=== PATIENT | female | born 1995 | race Caucasian/White ===

== ENCOUNTER 2018-05-24 18:14 | Inpatient (IN) | payer BC, OTHER ==
[2018-05-24] MEDS ORDERED: Dinoprostone* 10 MG VAG.SUPP VAGINAL ONE (18:52)
[2018-05-24] MEDS ORDERED: Lactated Ringers 1000 ML Bag* 1,000 ML IV ONE (19:16)
[2018-05-24] MEDS ORDERED: Buffered Lidocaine 1% SYRIN* 1 ML/SYRINGE INTRADERM ONE (19:16)
--- NOTE | 2018-05-24 19:48 | HP ---
General Information - Reason for Visit Term here for induction of labor for elevated BP. - General Information Maternal Age: 23 Grav: 2 Para: 1 SAB: 0 IEA: 0 Estimated Due Date: 05/29/18 Determined By: Early Ultrasound Maternal Blood Type and Rh: A Positive - Results this Serology/RPR Result: Non-Reactive Rubella Result: Immune HBsAg Result: Negative HIV Result: Negative GBS Culture Result: Negative Past Medical History Delivery History: Hx Uncomplicated Vaginal Delivery Pertinent Past Medical History: Non-Contributory Pertinent Past Surgical History: None Past Surgical History Comment: [place] tooth extraction Pertinent Family History: Non-Contributory Family History Comment: HTN hypercholesteremia aneurysm melanoma - Antepartal Records Antepartal Records: Reviewed, Complicated by: - Increased BP Review of Systems Constitutional: Comfortable CV Complaint: No Respiratory: Shortness of Breath: No Gastrointestinal: No Nausea/Vomiting, Normal Bowel Movement Genitourinary: No Dysuria, No Bleeding, No Leaking Fluid Musculoskeletal: No Complaint Neurological: No Headache, No Visual Changes Movement: Normal - Comments No RUQ pain Exam Allergies/Adverse Reactions: Allergies No Known Allergies Allergy (Verified 05/24/18 18:35) BP 140/91, repeat 126/80 T 98.8 HR 94 RR 20 O2 99 - Measurements Height: 5 ft 4 in Weight: 184 lb Weight in lbs: 184.800534 Body Mass Index (BMI): 31.6 Pre- Weight: 140 lb Weight Gained This : 44 lbs and 0 ozs - Exam Breast: Breast Exam Deferred CVA: No CVA Tenderness Extremities: No Edema Heart: Normal Rhythm/Heart Sounds HEENT: No Significant Findings Lungs: Clear Bilaterally Rectal: Rectal Exam Deferred Reflexes: DTR 2+, - - no clonus Thyroid: No Thyromegaly - Abdominal Exam Abdomen Exam: Non-Tender, Fundal Height Consistent with Dates - Ultrasound/Biophysical Profile Ultrasound Status: Not Done Targeted Exam Findings See L&D Outpatient Visit Provider Note for Findings: N/A Estimated Weight: 7.5-8lb Cervical Exam: Fingertip Effacement: 50% Station: -1 Presenting Part: Vertex Membrane Status: Intact Bleeding/Discharge: None EFM Findings - External Monitor Findings Baseline Heart Rate: 155 External Monitor Findings: Accelerations Present, No Pattern of Variable or Late Decelerations, Variability Moderate Contractions: Irregular, Mild, < 45 Seconds Contraction Frequency: Q 5-9 min Assessment/Plan - Assessment 23 yo with IUP @ 39+2 weeks gestation here for induction of labor due to elevated BP. - Obstetrical Risk Factors Obstetrical Risk Factors: Gestational Hypertension - Plan Plan: Induction, Cervical Ripening, Admit - Anticipate Vaginal Delivery Plan Comment: Admit to L&D. PARQ discussion of cervical ripening with cervidil; patient in agreement. May want to consider therapeutic rest with nubain/phenergan. Also discussed use of nitrous in labor and patient is interested. May opt for epidural. In active labor, start IV and draw labs as ordered. Anticipate SVB. - Date/Time of Admission Date of Admission: 05/24/18 Time of Admission: 19:20
[2018-05-24] MEDS ORDERED: Lactated Ringers 1000 ML Bag* 1,000 ML IV SCH (20:00)
[2018-05-25] MEDS: Promethazine INJ(RESTRICTED)* 25 MG/ML 1 ML VIAL IM PRN (02:48)
[2018-05-25] MEDS: Nalbuphine* 10 MG/ML 1 ML VIAL IM PRN (02:48)
--- NOTE | 2018-05-25 08:08 | PN ---
Progress Note - Progress Note Date of Service: 05/25/18 Note: SOAP: S: Pt awake and resting in bed Cramping and mild contractions overnight +FM, denies lof/bloody show O: 137/90, HR 86, Temp 99.3 Baseline 150, +accelerations, occasional variable decel Ctx: 3+5. palpate mild VE: FT/50%/-1, soft, mid; Pritchett = 6 IBOW A: IUP@39+2 here for an IOL d/t GHTN Awaiting PEC labs Appropriate uterine resting tone No evidence of metabolic acidemia Plan: Discussed risks vs. benefits of Pitocin. Family and provider in agreement to start low-dose Pitocin. Epirdural PRN Anticipate progression to
[2018-05-25] MEDS: Oxytocin in LR* 20 UNITS/1,000 ML BAG IVPB SCH (08:28)
[2018-05-25 08:45] LABS: ABS Basophils 0 10^3/ul (0-0.2); ABS Eosinophils 0.1 10^3/ul (0-0.6); ABS Lymphocytes 2.3 10^3/ul (1.0-4.8); ABS Monocytes 0.9 10^3/ul (0-0.8); ABS Neutrophils 9.8 10^3/ul (1.5-7.7); ABS Nucleated RBC 0 10^3/ul; Eosinophil % 0.5 %; Hematocrit 38 % (35-47); Hemoglobin 12.5 g/dl (12.0-16.0); Lymphocyte % 17.7 %; Mean Corpuscular HGB Conc 33 g/dl (31-36); Mean Corpuscular Hemoglobin 28 pg (27-31); Mean Corpuscular Volume 84 fL (80-97); Nucleated Red Blood Cells % 0; Platelet Count 198 10^3/ul (150-450); Red Blood Count 4.48 10^6/ul (4.00-5.40); Red Cell Distribution Width 15 % (10.5-15); White Blood Count 13.2 10^3/ul (3.5-10.8)
[2018-05-25 09:07] LABS: Calcium 9.4 mg/dL (8.6-10.3); Potassium 4.1 mmol/L (3.5-5.0)
[2018-05-25 09:12] LABS: EGFR African American 171.5 (>60); EGFR Non-African American 141.7 (>60)
--- NOTE | 2018-05-25 13:00 | PN ---
Progress Note - Progress Note Date of Service: 05/25/18 Note: S: Pt ambulating in the slade Cramping, but not feeling contractions +FM, denies lof/bloody show O: 127/80 Baseline 150, +accelerations, occasional variable decel Ctx: q2 mins, palpate mild Pitocin@14 mU VE: deferred IBOW A: IUP@39+2 here for an IOL d/t GHTN BPs stable Appropriate uterine resting tone No evidence of metabolic acidemia Plan: Continue to increase pitocin as tolerated Epirdural PRN Anticipate progression to
--- NOTE | 2018-05-25 17:25 | PN ---
Progress Note - Progress Note Date of Service: 05/25/18 Note: S: Cramping, but not feeling contractions Requesting VE +FM, denies lof/bloody show Denies MUKHERJEE, epigastric pain, edema O: 122/59 Baseline 150, +accelerations, moderate variability Ctx: q2-4 mins, palpate mild Pitocin@22 mU VE: FT/50%/-1, vtx IBOW A: IUP@39+2 here for an IOL d/t GHTN BPs stable Appropriate uterine resting tone VE: no change No evidence of metabolic acidemia Plan: Given no cervical change, the decision was made to d/c the Pitocin Plan for misoprostol q4-6 hrs if no contraindications Anticipate progression to
[2018-05-25 17:54] LABS: Urine Appearance Cloudy; Urine Bilirubin Negative (Negative); Urine Blood Negative (Negative); Urine Color Yellow; Urine Glucose Negative (Negative); Urine Ketones 1+ (Negative); Urine Nitrite Negative (Negative); Urine Protein Negative (Negative); Urine Specific Gravity 1.008 (1.010-1.030); Urine Urobilinogen Negative (Negative)
[2018-05-25] MEDS ORDERED: Misoprostol TAB* 100 MCG PO SCH (20:00)
[2018-05-25] MEDS: Misoprostol TAB* 100 MCG PO SCH (20:24)
--- NOTE | 2018-05-25 21:13 | PN ---
Progress Note - Progress Note Date of Service: 05/25/18 Note: S: Cramping resolved, denies contractions, discomfort Denies MUKHERJEE, epigastric pain, edema Family at bedside, supportive O: 128/85, P86 Baseline 145, +accelerations, moderate variability Ctx: occasional VE: deferred IBOW A: IUP@39+2 here for an IOL d/t GHTN BPs stable Appropriate uterine resting tone No evidence of metabolic acidemia Plan: Misoprostol, 50mcg, PO q4-6 hours; first dose given Anticipate progression to active labor
[2018-05-26] MEDS: Misoprostol TAB* 100 MCG PO SCH ×2 (00:26→14:37)
[2018-05-26] MEDS: Promethazine INJ(RESTRICTED)* 25 MG/ML 1 ML VIAL IM PRN (03:00)
[2018-05-26] MEDS: Nalbuphine* 10 MG/ML 1 ML VIAL IM PRN (03:01)
[2018-05-26] MEDS ORDERED: Nalbuphine* 10 MG/ML 1 ML VIAL IV PRN (04:42)
[2018-05-26] MEDS ORDERED: Promethazine INJ(RESTRICTED)* 25 MG/ML 1 ML VIAL IV PRN (04:42)
--- NOTE | 2018-05-26 04:48 | PN ---
Progress Note - Progress Note Date of Service: 05/26/18 Note: S: Cramping, but not feeling contractions Requesting VE +FM, denies lof/bloody show Denies MUKHERJEE, epigastric pain, edema O: 123/66 Baseline 150, +accelerations, moderate variability Ctx: q3-5 VE: FT/50%/-1, vtx IBOW A: IUP@39+2 here for an IOL d/t GHTN BPs stable Appropriate uterine resting tone VE: no change No evidence of metabolic acidemia Plan: Pt given Nubian and promethazine for therapeutic rest Will resume IOL following rest Anticipate progression to
--- NOTE | 2018-05-26 08:48 | PN ---
Progress Note - Progress Note Date of Service: 05/26/18 Note: Slept some during night. Now bashir every 3-4 minutes, breathing through Cervix:3-4 cm/90%, vtx 0 AROM clear fluid May want epidural. Will observe for now, restart pitocin prn
--- NOTE | 2018-05-26 09:58 | PN ---
Progress Note - Progress Note Date of Service: 05/26/18 Note: strong contractions every 2-3 min Cervix: 5-6 cm/100%, vtx [address] Lopes notified
[2018-05-26] MEDS ORDERED: OBEPIDURAL* 250 ML EPIDURAL ONE (10:01)
[2018-05-26] MEDS ORDERED: Lidocaine 1.5% EPI 1:200,000* 30 ML SDV ONE (10:22)
[2018-05-26] MEDS ORDERED: Sodium Citrate/Citric Acid* 15 ML UDC PO PRN (10:59)
[2018-05-26] MEDS ORDERED: Lactated Ringers 1000 ML Bag* 500 ML IV PRN ×2 (10:59)
[2018-05-26] MEDS ORDERED: Lactated Ringers 1000 ML Bag* 1,000 ML IV ONE (10:59)
[2018-05-26] MEDS ORDERED: Phenylephrine IV* 40 MCG/ML 10 ML SYRINGE IV PUSH PRN ×2 (10:59)
[2018-05-26] MEDS ORDERED: Famotidine TAB* 20 MG PO PRN (10:59)
[2018-05-26] MEDS ORDERED: Lactated Ringers 1000 ML Bag* 1,000 ML IV SCH ×2 (11:00→15:00)
[2018-05-26] MEDS ORDERED: OBEPIDURAL* 250 ML EPIDURAL SCH (11:00)
[2018-05-26] MEDS: Oxytocin in LR* 20 UNITS/1,000 ML BAG IVPB SCH (12:35)
[2018-05-26] MEDS ORDERED: Witch Hazel PAD* JAR TOPICAL PRN (14:32)
[2018-05-26] MEDS ORDERED: Acetaminophen TAB* 325 MG PO PRN (14:32)
[2018-05-26] MEDS ORDERED: Dibucaine 1% 28.35 GM TUBE PR PRN (14:32)
[2018-05-26] MEDS ORDERED: Glycerin ADULT SUPP PR PRN (14:32)
[2018-05-26] MEDS ORDERED: Oxytocin in LR* 20 UNITS/1,000 ML BAG IVPB SCH (14:35)
--- NOTE | 2018-05-26 14:45 | PROCNOTE ---
[facility] OB: Delivery Note - Delivery A Date of : 05/26/18 Time of : 13:34 [place] Sex: Male Weight at : 8 lb 4 oz Score 1 Minute: 9 Score 5 Minutes: 10 Gestational Age in Weeks and Days at Delivery: 39 Weeks and 4 Days Delivery Method: Spontaneous Vaginal Labor: Induced Did Patient attempt ?: N/A, No Previous Amniotic Fluid: Clear Estimated Blood Loss: 200 Anesthesia/Analgesia: CEI for Labor Anesthesia Comment: Dr. Lopes Delivered By: Maria Eugenia Marcelo - Nursery Level of Nursery: Regular/Bedside - Perineum Perineal Injury: Perineal Laceration, 2nd Degree Perineal Injury Comment: excision of hymenal tag Perineal Repair: By Delivering Practioner - Events Delivery Events of Note: Pitocin During Labor - Additional Delivery Notes Additional Delivery Notes: Induction with Cervidil, pitocin, misoprostol, amniotomy for mild gestational hypertension. Total length of active labor 7'08" Fully dilated, feeling pressure at 1135. Began pushing at that point. Pitocin augmentation started due to ineffective contractions. Pushed 1'59". SVB OA [facility] over 2nd degree perineal lac. Infant pink with stimulation. Placenta Perri. FF with massage, IV with pitocin running. Laceration repaired with 3-0 ccg under 1% lidocaine local. Excision of L hymenal tag under local, 2 stitch repair with 4-0 ccg. EBL 200 cc. Mother and baby in good condition.
[2018-05-26] MEDS: Ibuprofen TAB* 600 MG PO PRN ×2 (14:47→20:44)
[2018-05-26] MEDS: Docusate CAP* 100 MG PO SCH (20:44)
[2018-05-27] MEDS: Ibuprofen TAB* 600 MG PO PRN ×2 (02:38→09:43)
[2018-05-27 07:03] LABS: Hematocrit 30 % (35-47); Mean Corpuscular HGB Conc 34 g/dl (31-36); Mean Corpuscular Hemoglobin 29 pg (27-31); Mean Corpuscular Volume 85 fL (80-97); Mean Platelet Volume 10.2 fL (7.4-10.4); Platelet Count 144 10^3/ul (150-450); Red Blood Count 3.51 10^6/ul (4.00-5.40); Red Cell Distribution Width 15 % (10.5-15); White Blood Count 12.6 10^3/ul (3.5-10.8)
[2018-05-27] MEDS: Docusate CAP* 100 MG PO SCH ×2 (08:27→14:33)
[2018-05-27] MEDS ORDERED: Ferrous Gluconate TAB* 324 MG TAB PO SCH (09:00)
[2018-05-27 16:18] VITALS: BP 134/75
== END 2018-05-27 17:30 | disposition home or self-care (01) | DRG 560 ==
LOC: MCHOBOUT 18:14 → MCHOB 19:20
PROVIDERS: ADMIT Midwife; ATTEND Midwife
PROC: 10E0XZZ Delivery of Products of Conception, External Approach (ICD-10-PCS; principal; 2018-05-26)
PROC: 3E033VJ Introduction of Other Hormone into Peripheral Vein, Percutaneous Approach (ICD-10-PCS; 2018-05-26)
PROC: 10907ZC Drainage of Amniotic Fluid, Therapeutic from Products of Conception, Via Natural or Artificial Opening (ICD-10-PCS; 2018-05-26)
PROC: 4A1HXCZ Monitoring of Products of Conception, Cardiac Rate, External Approach (ICD-10-PCS; 2018-05-26)
PROC: 3E0P7VZ Introduction of Hormone into Female Reproductive, Via Natural or Artificial Opening (ICD-10-PCS; 2018-05-26)
PROC: 0KQM0ZZ Repair Perineum Muscle, Open Approach (ICD-10-PCS; 2018-05-26)
PROC: 0UBKXZZ Excision of Hymen, External Approach (ICD-10-PCS; 2018-05-26)
DX: O13.4 Gestational [pregnancy-induced] hypertension without significant proteinuria, complicating childbirth (principal); Z37.0 Single live birth; Z3A.39 39 weeks gestation of pregnancy; Z82.49 Family history of ischemic heart disease and other diseases of the circulatory system; O70.1 Second degree perineal laceration during delivery; O76 Abnormality in fetal heart rate and rhythm complicating labor and delivery
CPT/HCPCS: 36415; 80048; 81003; 83615; 84450; 84460; 84550; 85025; 85027; 86850; 86900; 86901; A9270-GY; J2300; J2550; S0191

== ENCOUNTER 2019-01-22 16:05 | Emergency (ER) | payer OTHER, BC ==
[2019-01-22] MEDS ORDERED: Lidocaine 1% MPF ** 5 ML VIAL IM ONE ×3 (17:19→17:32)
[2019-01-22] MEDS ORDERED: cefTRIAXone VIAL(*) 500 MG VIAL IM ONE (17:19)
[2019-01-22] MEDS ORDERED: Acetaminophen TAB* 325 MG PO ONE (17:20)
--- NOTE | 2019-01-22 17:22 | UC ---
HPI Febrile Illness - HPI Summary HPI Summary: Pt presents with c/o painful lump in left breast, body aches, chills and fever. Pt is breast feeding an 8 month old Pt states that she has been "exhausted" and feeling "terrible" today. - History of Current Complaint Chief Complaint: UCSkin Time Seen by Provider: 01/22/19 16:50 Hx Obtained From: Patient Hx Last Menstrual Period: now-spotting Onset/Duration: Started Hours Ago Timing: Constant Initial Severity: Mild Current Severity: Moderate Pain Intensity: 6 Aggravating Factors: Nothing - is painful Alleviating Factors: OTC Medicine Associated Signs and Symptoms: Chills, Myalgia - Risk Factors Pseudomonas Risk Factors: Negative Serious Bacterial Infection Risk Factors: Negative - Additional Pertinent History Current Antibiotics: No - Allergy/Home Medications Allergies/Adverse Reactions: Allergies Allergy/AdvReac Type Severity Reaction Status Date / Time seasonal Allergy Eyes Uncoded 01/22/19 17:07 Itchy/Swollen/Red/Watery Home Medications: Home Medications Acetaminophen [Acetaminophen Extra Strength] 500 mg PO ONCE PRN 01/22/19 [ History Confirmed 01/22/19] PMH/Surg Hx/FS Hx/Imm Hx Previously Healthy: Yes - Surgical History Surgical History: None - Family History Known Family History: Positive: Cardiac Disease - Social History Occupation: Employed Full-time Lives: With Family Alcohol Use: Occasionally Substance Use Type: None Smoking Status (MU): Never Smoked Tobacco Have You Smoked in the Last Year: No - Immunization History Most Recent Influenza Vaccination: 02/07/18 Most Recent Pneumonia Vaccination: None Review of Systems All Other Systems Reviewed And Are Negative: Yes Constitutional: Positive: Fever, Chills, Fatigue Skin: Positive: Negative, Other - breast is not red/erythematous pt c/o tender "lump" in left breast at ~ 4 o'clock position Eyes: Positive: Negative ENT: Positive: Negative Respiratory: Positive: Negative Cardiovascular: Positive: Negative Gastrointestinal: Positive: Negative Genitourinary: Positive: Negative Motor: Positive: Negative Neurovascular: Positive: Negative Musculoskeletal: Positive: Myalgia Neurological: Positive: Negative Psychological: Positive: Negative Is Patient Immunocompromised?: No Physical Exam Triage Information Reviewed: Yes Appearance: Well-Appearing Vital Signs: Initial Vital Signs Temp 101 F 01/22/19 17:01 Pulse 132 01/22/19 17:01 Resp 22 01/22/19 17:01 BP 139/77 01/22/19 17:01 Pulse Ox 97 01/22/19 17:01 Vital Signs Reviewed: Yes Eye Exam: Normal ENT: Positive: Hearing grossly normal Dental Exam: Normal Neck exam: Normal Respiratory Exam: Normal Respiratory: Positive: Normal breath sounds Cardiovascular: Positive: Tachycardia Musculoskeletal Exam: Normal Neurological Exam: Normal Psychological Exam: Normal Skin Exam: Normal - Additional Comments left side breast exam did not reveal any red streaking, erythema pt c/o of tenderness with breast exam at ~ 4 o'clock position. Pt stated she had been fatigued and "in bed", drinking "lots of water" and breast feeding baby on demand. Course/Dx - Course Course Of Treatment: I discussed with the pt the need to continue with breast feeding baby on demand and to monitor for worsening symptoms and the need to follow up with her PCP as soon as possible. - Febrile Illness Differential Diagnoses: Fever of Unknown Origin, Other: - mastitis - Diagnoses Provider Diagnosis: Acute mastitis of left breast Discharge ED - Sign-Out/Discharge Documenting (check all that apply): Patient Departure All imaging exams completed and their final reports reviewed: No Studies - Discharge Plan Condition: Stable Disposition: HOME Prescriptions: Cephalexin CAP* [Keflex 500 CAP*] 500 mg PO Q6H #28 cap Patient Education Materials: Mastitis (ED) Referrals: Barbara Partida MD [Primary Care Provider] - As Soon As Possible - Billing Disposition and Condition Condition: STABLE Disposition: Home - Attestation Statements Provider Attestation: This patient was not seen by me. I was available for consult. Chart reviewed. JARON
[2019-01-22] MEDS ORDERED: cefTRIAXone VIAL(*) 250 MG VIAL IM ONE ×2 (17:32)
[2019-01-22] MEDS ORDERED: Lidocaine 1% MPF* 2 ML VIAL INJ ONE (17:40)
[2019-01-22 18:34] VITALS: BP 135/79
== END 2019-01-22 18:37 | disposition home or self-care (01) ==
LOC: UCCORT 16:05
DX: N61.0 Mastitis without abscess (principal); R53.83 Other fatigue; Z91.09 Other allergy status, other than to drugs and biological substances
CPT/HCPCS: 96372; 99212; A9270-GY; G0463; J0696